=== PATIENT | male | born 1980 | race American Indian/Alaskan Native ===

== ENCOUNTER 2018-09-28 17:15 | Emergency (ER) | payer OTHER ==
--- NOTE | 2018-09-28 17:45 | Emergency Department Report ---
ED Seizure HPI - General Chief Complaint: Seizure Stated Complaint: SEIZURE Time Seen by Provider: 09/28/18 17:43 Source: EMS Mode of arrival: Stretcher Limitations: No Limitations - History of Present Illness MD Complaint: seizure -: Sudden Description of Episode: loss of consciousness, tonic-clonic movement Witnessed:: Yes Trauma: No Seizure History: known seizure disorder, history of non-compliance Place: home Possible Precipitating Event: none Associated Symptoms: denies other symptoms Treatments Prior to Arrival: none - Related Data Previous Rx's Medication Instructions Recorded Last Taken Type Divalproex Sodium [Depakote] 500 mg PO BID #60 tablet. 09/28/18 Unknown Rx Insulin Glargine,Hum.rec.anlog 40 units SQ QAM #1 vial 09/28/18 Unknown Rx [Lantus] Allergies Allergy/AdvReac Type Severity Reaction Status Date / Time No Known Allergies Allergy Verified 09/28/18 17:33 ED Review of Systems ROS: Stated complaint: SEIZURE Other details as noted in HPI Comment: All other systems reviewed and negative Constitutional: denies: chills, fever Eyes: denies: eye pain, eye discharge, vision change ENT: denies: ear pain, throat pain Respiratory: denies: cough, shortness of breath, wheezing Cardiovascular: denies: chest pain, palpitations Endocrine: no symptoms reported Gastrointestinal: denies: abdominal pain, nausea, diarrhea Genitourinary: denies: urgency, dysuria Musculoskeletal: denies: back pain, joint swelling, arthralgia Skin: denies: rash, lesions Neurological: headache. denies: weakness, paresthesias Psychiatric: denies: anxiety, depression Hematological/Lymphatic: denies: easy bleeding, easy bruising ED Past Medical Hx - Past Medical History Previous Medical History?: Yes Hx Hypertension: Yes Hx Diabetes: Yes Hx Seizures: Yes - Surgical History Past Surgical History?: Yes Additional Surgical History: eye surgery, - Social History Smoking Status: Never Smoker - Medications Home Medications: Home Medications Medication Instructions Recorded Confirmed Last Taken Type Divalproex Sodium [Depakote] 500 mg PO BID #60 tablet. 09/28/18 Unknown Rx Insulin Glargine,Hum.rec.anlog 40 units SQ QAM #1 vial 09/28/18 Unknown Rx [Lantus] ED Physical Exam - General Limitations: No Limitations General appearance: alert, in no apparent distress - Head Head exam: Present: atraumatic, normocephalic, normal inspection - Eye Eye exam: Present: normal appearance, PERRL, EOMI Pupils: Present: normal accommodation - ENT ENT exam: Present: normal exam, mucous membranes moist - Neck Neck exam: Present: normal inspection - Respiratory Respiratory exam: Present: normal lung sounds bilaterally. Absent: respiratory distress - Cardiovascular Cardiovascular Exam: Present: regular rate, normal rhythm. Absent: systolic murmur, diastolic murmur, rubs, gallop - GI/Abdominal GI/Abdominal exam: Present: soft, normal bowel sounds - Rectal Rectal exam: Present: deferred - Extremities Exam Extremities exam: Present: normal inspection - Back Exam Back exam: Present: normal inspection, full ROM - Neurological Exam Neurological exam: Present: alert, oriented X3, CN II-XII intact - Psychiatric Psychiatric exam: Present: normal affect, normal mood - Skin Skin exam: Present: warm, dry, intact, normal color. Absent: rash ED Course Vital Signs 09/28/18 09/28/18 09/28/18 17:28 18:01 18:27 Temperature 98.3 F Pulse Rate 86 Respiratory 16 18 Rate Blood Pressure 107/56 116/65 O2 Sat by Pulse 95 100 99 Oximetry 09/28/18 09/28/18 09/28/18 18:30 19:02 19:10 Temperature Pulse Rate Respiratory 18 Rate Blood Pressure 109/58 116/65 O2 Sat by Pulse 100 97 Oximetry 09/28/18 19:30 Temperature Pulse Rate Respiratory Rate Blood Pressure 116/65 O2 Sat by Pulse 99 Oximetry - Consultations Consultation #1: 09/28/18 19:47 I consulted the teleneurologist salesperson [employer] Dr Saul, she recommend loading patient with 1000mg of Depakote IV and discharging him on Depekote 500mg PO BID. Out patient follow up with a Neurologist. ED Medical Decision Making - Lab Data Result diagrams: 09/28/18 17:57 09/28/18 17:57 Lab Results 09/28/18 09/28/18 09/28/18 Range/Units 17:57 17:57 18:06 WBC 5.5 (4.5-11.0) K/mm3 RBC 4.57 (3.65-5.03) M/mm3 Hgb 12.7 (11.8-15.2) gm/dl Hct 38.1 (35.5-45.6) % MCV 83 L (84-94) fl MCH 28 (28-32) pg MCHC 34 (32-34) % RDW 12.5 L (13.2-15.2) % Plt Count 220 (140-440) K/mm3 Lymph % (Auto) 16.4 (13.4-35.0) % [place] % (Auto) 6.9 (0.0-7.3) % Eos % (Auto) 1.2 (0.0-4.3) % Baso % (Auto) 1.3 (0.0-1.8) % Lymph # 0.9 L (1.2-5.4) K/mm3 [place] # 0.4 (0.0-0.8) K/mm3 Eos # 0.1 (0.0-0.4) K/mm3 Baso # 0.1 (0.0-0.1) K/mm3 Seg Neutrophils % 74.2 H (40.0-70.0) % Seg Neutrophils # 4.1 (1.8-7.7) K/mm3 VBG pH (7.320-7.420) Sodium 136 L (137-145) mmol/L Potassium 4.2 (3.6-5.0) mmol/L Chloride 95.0 L (98-107) mmol/L Carbon Dioxide 19 L (22-30) mmol/L Anion Gap 26 mmol/L BUN 12 (9-20) mg/dL Creatinine 1.6 H (0.8-1.5) mg/dL Estimated GFR 48 ml/min BUN/Creatinine Ratio 8 % Glucose 351 H (75-100) mg/dL Calcium 9.3 (8.4-10.2) mg/dL Total Bilirubin 0.20 (0.1-1.2) mg/dL Direct Bilirubin < 0.2 (0-0.2) mg/dL Indirect Bilirubin 0.0 mg/dL AST 67 H (5-40) units/L ALT 48 (7-56) units/L Alkaline Phosphatase 65 (35-129) units/L Total Protein 7.2 (6.3-8.2) g/dL Albumin 4.2 (3.9-5) g/dL Albumin/Globulin Ratio 1.4 % Phenytoin (10.0-20.0) ug/mL Valproic Acid (50-100) ug/mL Plasma/Serum Alcohol (0-0.07) % 09/28/18 09/28/18 09/28/18 Range/Units 18:06 18:06 18:06 WBC (4.5-11.0) K/mm3 RBC (3.65-5.03) M/mm3 Hgb (11.8-15.2) gm/dl Hct (35.5-45.6) % MCV (84-94) fl MCH (28-32) pg MCHC (32-34) % RDW (13.2-15.2) % Plt Count (140-440) K/mm3 Lymph % (Auto) (13.4-35.0) % [place] % (Auto) (0.0-7.3) % Eos % (Auto) (0.0-4.3) % Baso % (Auto) (0.0-1.8) % Lymph # (1.2-5.4) K/mm3 [place] # (0.0-0.8) K/mm3 Eos # (0.0-0.4) K/mm3 Baso # (0.0-0.1) K/mm3 Seg Neutrophils % (40.0-70.0) % Seg Neutrophils # (1.8-7.7) K/mm3 VBG pH 7.325 (7.320-7.420) Sodium (137-145) mmol/L Potassium (3.6-5.0) mmol/L Chloride (98-107) mmol/L Carbon Dioxide (22-30) mmol/L Anion Gap mmol/L BUN (9-20) mg/dL Creatinine (0.8-1.5) mg/dL Estimated GFR ml/min BUN/Creatinine Ratio % Glucose (75-100) mg/dL Calcium (8.4-10.2) mg/dL Total Bilirubin (0.1-1.2) mg/dL Direct Bilirubin (0-0.2) mg/dL Indirect Bilirubin mg/dL AST (5-40) units/L ALT (7-56) units/L Alkaline Phosphatase (35-129) units/L Total Protein (6.3-8.2) g/dL Albumin (3.9-5) g/dL Albumin/Globulin Ratio % Phenytoin 0.8 L (10.0-20.0) ug/mL Valproic Acid 30.8 L (50-100) ug/mL Plasma/Serum Alcohol < 0.01 (0-0.07) % - Radiology Data Radiology results: report reviewed, image reviewed CT head without contrast and CXR showed no acute findings. - Medical Decision Making Seizure Disorder. Dehydration. Critical care attestation.: If time is entered above; I have spent that time in minutes in the direct care of this critically ill patient, excluding procedure time. ED Disposition Clinical Impression: Seizure disorder, Dehydration, moderate, ANOOP (acute kidney injury), Hyperglyc emia Diabetes mellitus Qualifiers: Diabetes mellitus type: type 2 Diabetes mellitus prison insulin use: unspecified prison insulin use status Diabetes mellitus complication status: with unspecified complications Qualified Code(s): E11.8 - Type 2 diabetes mellitus with unspecified complications Disposition: TO HOME OR SELFCARE Is pt being admited?: No Does the pt Need Aspirin: No Condition: Stable Instructions: Dehydration (ED), Diabetes Mellitus Type 2 in Adults (ED), Epilepsy (ED) Additional Instructions: Please follow up with the Neurologist Dr Saul and also with Dr Lund (Internal Medicine) on Sunday. Drink plenty of water. Return to the ED if your condition worsens. Prescriptions: Divalproex Sodium [Depakote] 500 mg PO BID #60 tablet. Insulin Glargine,Hum.rec.anlog [Lantus] 40 units SQ QAM #1 vial Referrals: KENDRICK SAUL MD [Staff] - 3-5 Days RAMAN LUND MD [Staff Physician] - 3-5 Days Time of Disposition: 20:09
[2018-09-28] MEDS ORDERED: NACL 0.9% 1000 ML 1,000 ML IV ONE ×3 (18:00→20:00)
[2018-09-28 18:31] LABS: Basophils # (Auto) 0.1 K/mm3 (0.0-0.1); Basophils % (Auto) 1.3 % (0.0-1.8); Eosinophils # (Auto) 0.1 K/mm3 (0.0-0.4); Eosinophils % (Auto) 1.2 % (0.0-4.3); Hematocrit 38.1 % (35.5-45.6); Hemoglobin 12.7 gm/dl (11.8-15.2); Lymphocytes # (Auto) 0.9 K/mm3 (1.2-5.4); Lymphocytes % (Auto) 16.4 % (13.4-35.0); Mean Corpuscular HGB Conc 34 % (32-34); Mean Corpuscular Volume 83 fl (84-94); Monocytes # (Auto) 0.4 K/mm3 (0.0-0.8); Monocytes % (Auto) 6.9 % (0.0-7.3); Platelet Count 220 K/mm3 (140-440); Red Blood Count 4.57 M/mm3 (3.65-5.03); Red Cell Distribution Width 12.5 % (13.2-15.2)
[2018-09-28] MEDS ORDERED: REGLAN IV ONE (18:37)
[2018-09-28] MEDS ORDERED: MORPHINE IV ONE (18:37)
[2018-09-28] MEDS ORDERED: MORPHINE ONE (18:45)
[2018-09-28 18:50] LABS: Calcium 9.3 mg/dL (8.4-10.2)
[2018-09-28 18:54] LABS: Alanine Aminotransferase 48 units/L (7-56); Albumin 4.2 g/dL (3.9-5)
--- NOTE | 2018-09-28 18:57 | XRay Report ---
FINAL REPORT EXAM: XR CHEST 1V AP HISTORY: cough TECHNIQUE: upright single view chest PRIORS: None. FINDINGS: Cardiac and mediastinal contours are unremarkable. No focal pulmonary infiltrate is identified. No pleural fluid collection seen. Pulmonary vasculature is unremarkable. IMPRESSION: Negative single-view chest
[2018-09-28 19:04] LABS: Bilirubin,Direct < 0.2 mg/dL (0-0.2)
--- NOTE | 2018-09-28 19:11 | Cat Scan Report ---
FINAL REPORT EXAM: CT HEAD/BRAIN WO CON HISTORY: Seizure TECHNIQUE: CT head without contrast PRIORS: None. FINDINGS: No acute intra-axial or extra-axial hemorrhage is identified. There is no evidence of midline shift or mass effect. The ventricles and sulci are within normal limits. [place]u-white matter differentiation is intact. No acute parenchymal abnormalities seen. Bony calvarium is grossly intact. Visualized portions of the mastoids and paranasal sinuses are unre markable. IMPRESSION: Negative CT head
[2018-09-28] MEDS ORDERED: DepaCON 1,000 MG in NACL 0.9% 100 ML IV ONE (19:34)
[2018-09-28 19:46] VITALS: BP 116/65
[2018-09-28 19:50] LABS: Bilirubin,Urine NEG (Negative); Blood,Urine MOD (Negative); Color,Urine Straw (Yellow); Mucus,Urine FEW /HPF; Protein,Urine <15 mg/dL mg/dL (Negative); Urobilinogen,Urine < 2.0 mg/dL (<2.0); WBC,Urine < 1.0 /HPF (0.0-6.0)
[2018-09-28 20:14] LABS: Amphetamine Screen,Urine PRESUMPTIVE NEGATIVE; Benzodiazepines Screen,Urine PRESUMPTIVE NEGATIVE; Cocaine Screen,Urine PRESUMPTIVE NEGATIVE; Methadone Screen,Urine PRESUMPTIVE NEGATIVE; Opiate Screen,Urine PRESUMPTIVE NEGATIVE
[2018-09-28 20:35] LABS: Cannabinoid Screen,Urine PRESUMPTIVE POSITIVE
== END 2018-09-28 22:12 | disposition home or self-care (01) ==
LOC: ED 17:15
DX: G40.909 Epilepsy, unspecified, not intractable, without status epilepticus (principal); E86.0 Dehydration; E11.65 Type 2 diabetes mellitus with hyperglycemia; N17.9 Acute kidney failure, unspecified; I10 Essential (primary) hypertension
CPT/HCPCS: 36415; 70450; 71045; 80048; 80076; 80164; 80185; 80307; 81001; 82805; 82962; 85025; 96365; 96375; 99285; G0480; J2270; J2765; J7030; 80320; 96361

== ENCOUNTER 2021-02-05 11:00 | Observation (INO) | payer SELFPAY ==
[2021-02-05] MEDS ORDERED: IPRATROPIUM/ALBUTEROL SULFATE 3 ML AMPUL.NEB IH ONE (11:15)
[2021-02-05] MEDS ORDERED: SODIUM CHLORIDE 0.9% 1000 ML 1,000 ML IV ONE ×3 (11:36→13:08)
[2021-02-05] MEDS ORDERED: BUTALB/ACETAMINOPHEN/CAFFEINE TAB PO ONE (11:39)
[2021-02-05 12:06] LABS: Bilirubin,Urine NEG (Negative); Blood,Urine NEG (Negative); Color,Urine Straw (Yellow); Protein,Urine <15 mg/dL mg/dL (Negative); Urobilinogen,Urine < 2.0 mg/dL (<2.0)
[2021-02-05 12:15] LABS: Basophils % (Auto) 0.6 % (0.0-1.8); Eosinophils # (Auto) 0.2 K/mm3 (0.0-0.4); Eosinophils % (Auto) 2.9 % (0.0-4.3); Hematocrit 38.6 % (35.5-45.6); Hemoglobin 12.9 gm/dl (11.8-15.2); Lymphocytes # (Auto) 2.4 K/mm3 (1.2-5.4); Lymphocytes % (Auto) 38.2 % (13.4-35.0); Mean Corpuscular HGB Conc 33 % (32-34); Mean Corpuscular Volume 83 fl (84-94); Monocytes # (Auto) 0.4 K/mm3 (0.0-0.8); Monocytes % (Auto) 6.1 % (0.0-7.3); Platelet Count 265 K/mm3 (140-440); Red Blood Count 4.64 M/mm3 (3.65-5.03); Red Cell Distribution Width 12.6 % (13.2-15.2)
[2021-02-05 12:41] LABS: Creatine Kinase MB 21.2 ng/mL (0.0-4.0)
[2021-02-05 12:42] LABS: BUN/Creatinine Ratio 11; Blood Urea Nitrogen 17 mg/dL (9-20); Calcium 8.8 mg/dL (8.4-10.2); Hemolysis Index 3
[2021-02-05 12:53] LABS: Chol/HDL Ratio 2.23 %; HDL Cholesterol 72 mg/dL (40-59); LDL Cholesterol,Direct 80 mg/dL (50-130)
[2021-02-05] MEDS ORDERED: ASPIRIN 325 MG TAB PO ONE (13:05)
[2021-02-05] MEDS ORDERED: INSULIN REGULAR, HUMAN 100 UNITS/1 ML IV ONE (13:42)
[2021-02-05] MEDS ORDERED: VALPROATE SODIUM 500 MG in SODIUM CHLORIDE 0.9% 100 ML IV ONE (14:05)
[2021-02-05] MEDS ORDERED: ACETAMINOPHEN 325 MG TAB PO PRN (17:40)
[2021-02-05] MEDS ORDERED: ONDANSETRON 4 MG/2 ML INJ IV PRN (17:40)
[2021-02-05] MEDS ORDERED: HYDROmorphone 1 MG/1 ML INJ IV PRN (17:40)
[2021-02-05] MEDS ORDERED: MORPHINE 2 MG/1 ML INJ IV PRN (17:40)
[2021-02-05] MEDS: INSULIN LISPRO 100 UNIT/ML SUB-Q SCH ×2 (18:17→22:09)
[2021-02-05] MEDS: oxyCODONE /ACETAMINOPHEN 5-325MG TAB PO PRN (18:17)
[2021-02-05] MEDS: FAMOTIDINE 20 MG/2 ML INJ IV SCH (22:08)
[2021-02-05] MEDS: INSULIN GLARGINE 100 UNITS/ML SUB-Q SCH (22:08)
[2021-02-05] MEDS: DIVALPROEX DR 500 MG TAB PO SCH (22:26)
[2021-02-06] MEDS: INSULIN LISPRO 100 UNIT/ML SUB-Q SCH ×6 (01:59→22:14)
[2021-02-06] MEDS: SODIUM CHLORIDE 0.9% 1000 ML 1,000 ML IV SCH ×3 (02:05→17:02)
[2021-02-06] MEDS ORDERED: DEXTROSE 50% IN WATER (25GM) 50 ML SYRINGE IV ONE (04:33)
[2021-02-06] MEDS ORDERED: DEXTROSE 50% IN WATER (25GM) 50 ML SYRINGE IV PRN (04:34)
[2021-02-06 06:18] LABS: Basophils % (Auto) 0.3 % (0.0-1.8); Eosinophils # (Auto) 0.3 K/mm3 (0.0-0.4); Eosinophils % (Auto) 5.3 % (0.0-4.3); Hematocrit 34.8 % (35.5-45.6); Hemoglobin 11.7 gm/dl (11.8-15.2); Lymphocytes % (Auto) 49.7 % (13.4-35.0); Mean Corpuscular HGB Conc 34 % (32-34); Mean Corpuscular Volume 83 fl (84-94); Monocytes # (Auto) 0.3 K/mm3 (0.0-0.8); Monocytes % (Auto) 5.2 % (0.0-7.3); Platelet Count 255 K/mm3 (140-440); Red Blood Count 4.18 M/mm3 (3.65-5.03); Red Cell Distribution Width 12.9 % (13.2-15.2)
[2021-02-06 06:41] LABS: Alanine Aminotransferase 71 units/L (7-56); Albumin 3.7 g/dL (3.9-5); BUN/Creatinine Ratio 10; Blood Urea Nitrogen 13 mg/dL (9-20); Calcium 8.8 mg/dL (8.4-10.2); Hemolysis Index 6
[2021-02-06] MEDS: FAMOTIDINE 20 MG/2 ML INJ IV SCH (09:19)
[2021-02-06] MEDS: DIVALPROEX DR 500 MG TAB PO SCH ×2 (09:19→21:31)
[2021-02-06] MEDS: HEPARIN 5,000 UNIT/1 ML VIAL SUB-Q SCH ×2 (09:20→21:32)
[2021-02-06] MEDS: oxyCODONE /ACETAMINOPHEN 5-325MG TAB PO PRN (09:54)
[2021-02-06] MEDS ORDERED: GABAPENTIN 300 MG CAP PO ONE (17:00)
[2021-02-06] MEDS: FAMOTIDINE 20 MG TAB PO SCH (21:31)
[2021-02-06] MEDS: INSULIN GLARGINE 100 UNITS/ML SUB-Q SCH (22:14)
[2021-02-07] MEDS: INSULIN LISPRO 100 UNIT/ML SUB-Q SCH ×3 (01:38→09:44)
[2021-02-07] MEDS: SODIUM CHLORIDE 0.9% 1000 ML 1,000 ML IV SCH (05:10)
[2021-02-07 06:09] LABS: Hematocrit 33.5 % (35.5-45.6); Hemoglobin 11.4 gm/dl (11.8-15.2); Mean Corpuscular HGB Conc 34 % (32-34); Mean Corpuscular Volume 82 fl (84-94); Platelet Count 232 K/mm3 (140-440); Red Blood Count 4.08 M/mm3 (3.65-5.03); Red Cell Distribution Width 12.7 % (13.2-15.2)
[2021-02-07 06:25] LABS: Alanine Aminotransferase 58 units/L (7-56); Albumin 3.4 g/dL (3.9-5); BUN/Creatinine Ratio 10; Blood Urea Nitrogen 13 mg/dL (9-20); Calcium 8.2 mg/dL (8.4-10.2); Hemolysis Index 22
[2021-02-07 06:56] LABS: Total Cells Counted 100
[2021-02-07 06:57] LABS: Anisocytosis 1+; Platelet Estimate Consistent w Auto
[2021-02-07 08:20] VITALS: BP 134/74
[2021-02-07] MEDS: HEPARIN 5,000 UNIT/1 ML VIAL SUB-Q SCH (09:44)
[2021-02-07] MEDS: DIVALPROEX DR 500 MG TAB PO SCH (09:44)
[2021-02-07] MEDS: FAMOTIDINE 20 MG TAB PO SCH (09:44)
[2021-02-07] MEDS ORDERED: GABAPENTIN 300 MG CAP PO SCH (22:00)
== END 2021-02-07 11:52 | disposition home or self-care (01) ==
LOC: ED 11:00 → 4A 15:49
PROVIDERS: ADMIT Internal Medicine; ATTEND Internal Medicine
DX: N17.9 Acute kidney failure, unspecified (principal); M62.82 Rhabdomyolysis; E87.5 Hyperkalemia; E87.1 Hypo-osmolality and hyponatremia; I10 Essential (primary) hypertension; E11.00 Type 2 diabetes mellitus with hyperosmolarity without nonketotic hyperglycemic-hyperosmolar coma (NKHHC); R56.9 Unspecified convulsions; F17.210 Nicotine dependence, cigarettes, uncomplicated; E11.65 Type 2 diabetes mellitus with hyperglycemia; R77.8 Other specified abnormalities of plasma proteins; Z79.899 Other long term (current) drug therapy; Z98.890 Other specified postprocedural states; Z79.4 Long term (current) use of insulin
CPT/HCPCS: 36415; 70450; 80048; 80053; 80061; 80164; 81001; 82550; 82553; 82805; 82947; 82962; 83036; 84484; 85025; 93005; 96361; 96365; 96366; 96372; 96375; 96376; 99285; G0378; J1644; J7030; 85007; J1815

== ENCOUNTER 2021-04-14 14:55 | Emergency (ER) | payer OTHER ==
[2021-04-14 20:26] LABS: Basophils % (Auto) 0.4 % (0.0-1.8); Eosinophils # (Auto) 0.1 K/mm3 (0.0-0.4); Eosinophils % (Auto) 2.2 % (0.0-4.3); Hematocrit 35.7 % (35.5-45.6); Hemoglobin 11.7 gm/dl (11.8-15.2); Lymphocytes # (Auto) 1.4 K/mm3 (1.2-5.4); Lymphocytes % (Auto) 25.9 % (13.4-35.0); Mean Corpuscular HGB Conc 33 % (32-34); Mean Corpuscular Volume 85 fl (84-94); Monocytes # (Auto) 0.4 K/mm3 (0.0-0.8); Monocytes % (Auto) 7.8 % (0.0-7.3); Platelet Count 181 K/mm3 (140-440); Red Blood Count 4.21 M/mm3 (3.65-5.03); Red Cell Distribution Width 13.1 % (13.2-15.2)
[2021-04-14 20:51] LABS: Alanine Aminotransferase 40 units/L (7-56); Albumin 3.7 g/dL (3.9-5); BUN/Creatinine Ratio 13; Blood Urea Nitrogen 20 mg/dL (9-20); Calcium 9.5 mg/dL (8.4-10.2); Hemolysis Index 7
[2021-04-14] MEDS ORDERED: SODIUM CHLORIDE 0.9% 1000 ML 1,000 ML IV ONE ×3 (21:30→23:38)
--- NOTE | 2021-04-14 22:38 | Event Note ---
ED Screening Note Date of service: 04/14/21 Time: 20:30 ED Screening Note: Patient is a 40-year-old -[place] male with a history of heavy tobacco abuse, [id number] diabetes with chronic diabetic neuropathy who presents to the ED with complaint of acute exacerbation of his chronic bilateral lower extremity neuropathic pain persistent for the last 2 weeks. Patient states that he also suspects that his blood sugar may be high since he has not been on his medications for over 2 weeks. Patient states that he has recently relocated to [place] and is yet to get any primary care physician to follow-up with. Patient however states that he was initially evaluated at another hospital emergency department about a week ago and given prescriptions for his medications including insulin and pain medications but states that he only obtained pain medications but never purchased insulin or any of his diabetic medications since he did not have enough money. Patient denies dizziness, syncope, hematuria, dysuria, chest pain or shortness of breath, abdominal pain, numbness and tingling or weakness of lower extremities bilaterally, testicular pain, fever, chills, nausea, vomiting, diarrhea or headache. This initial assessment/diagnostic orders/clinical plan/treatment(s) is/are subject to change based on patients health status, clinical progression and re- assessment by fellow clinical providers in the ED. Further treatment and workup at subsequent clinical providers discretion. Patient/guardian urged not to elope from the ED as their condition may be serious if not clinically assessed and managed. Initial orders include: CBC, CMP,
[2021-04-14] MEDS ORDERED: traMADol 50 MG TAB PO ONE (23:38)
[2021-04-14] MEDS ORDERED: INSULIN REGULAR, HUMAN 100 UNITS/1 ML IV ONE (23:38)
--- NOTE | 2021-04-15 00:14 | Emergency Department Report ---
ED General Adult HPI - General Chief complaint: Extremity Injury, Lower Stated complaint: FOOT PAINS Time Seen by Provider: 04/14/21 16:00 Source: patient Mode of arrival: Ambulatory Limitations: No Limitations - History of Present Illness Initial comments: Patient presents to the emergency department the chief complaint of bilateral foot and leg pain. Patient states he has a history of diabetes and suffers from diabetic neuropathy. Patient states he takes 300 mg of gabapentin daily to no avail. Patient states at one point he was given Ultram for the pain which did help. Patient also complains of his glucose level being greater than 900. Sharda ent denies chest pain, shortness breath, or abdominal pain. -: unknown Severity scale (0 -10): 6 Quality: burning Consistency: constant Improves with: none Worsens with: none Associated Symptoms: denies other symptoms Treatments Prior to Arrival: none - Related Data Previous Rx's Medication Instructions Recorded Last Taken Type Insulin Lispro [Humalog] 0 unit SUB-Q QACHS #1 vial 05/24/20 Unknown Rx Insulin NPH, Human [NovoLIN N] 25 unit SUB-Q BID #1 vial 05/24/[address] [Mar Nicholson] 500 mg PO BID #60 tablet 02/07/21 Unknown Rx Gabapentin 300 mg PO QHS #30 capsule 02/07/21 Unknown Rx Insulin Aspart (Nf) [Novolog 8 unit SQ AC #1 insuln.pen 02/07/21 Unknown Rx Flexpen] traMADoL [Ultram] 50 mg PO Q6HR PRN #24 tablet 04/15/21 Unknown Rx Allergies Allergy/AdvReac Type Severity Reaction Status Date / Time No Known Allergies Allergy Verified 04/14/21 15:48 ED Review of Systems ROS: Stated complaint: FOOT PAINS Other details as noted in HPI Constitutional: denies: chills, fever Eyes: denies: eye pain, eye discharge, vision change ENT: denies: ear pain, throat pain Respiratory: denies: cough, shortness of breath, wheezing Cardiovascular: denies: chest pain, palpitations Endocrine: no symptoms reported Gastrointestinal: denies: abdominal pain, nausea, diarrhea Genitourinary: denies: urgency, dysuria Musculoskeletal: other (leg pain). denies: back pain, joint swelling, arthralgia Skin: denies: rash, lesions Neurological: denies: headache, weakness, paresthesias Psychiatric: denies: anxiety, depression Hematological/Lymphatic: denies: easy bleeding, easy bruising ED Past Medical Hx - Past Medical History Hx Hypertension: Yes ("taken off meds by MD, no longer have it") Hx Diabetes: Yes Hx Seizures: Yes - Surgical History Additional Surgical History: eye surgery, childhood, ankle surgery - Social History Smoking Status: Current Every Day Smoker - Medications Home Medications: Home Medications Medication Instructions Recorded Confirmed Last Taken Type Insulin Lispro [Humalog] 0 unit SUB-Q QACHS #1 vial 05/24/20 02/05/21 Unknown Rx Insulin NPH, Human [NovoLIN N] 25 unit SUB-Q BID #1 vial 05/24/20 02/05/[address] [Depakote Dr] 500 mg PO BID #60 tablet 02/07/21 Unknown Rx Gabapentin 300 mg PO QHS #30 capsule 02/07/21 Unknown Rx Insulin Aspart (Nf) [Novolog 8 unit SQ AC #1 insuln.pen 02/07/21 Unknown Rx Flexpen] traMADoL [Ultram] 50 mg PO Q6HR PRN #24 tablet 04/15/21 Unknown Rx ED Physical Exam - General Limitations: No Limitations General appearance: alert, in no apparent distress - Head Head exam: Present: atraumatic, normocephalic - Eye Eye exam: Present: normal appearance, PERRL, EOMI - ENT ENT exam: Present: mucous membranes moist - Neck Neck exam: Present: normal inspection - Respiratory Respiratory exam: Present: normal lung sounds bilaterally. Absent: respiratory distress - Cardiovascular Cardiovascular Exam: Present: regular rate, normal rhythm. Absent: systolic murmur, diastolic murmur, rubs, gallop - GI/Abdominal GI/Abdominal exam: Present: soft, normal bowel sounds. Absent: distended, tenderness - Rectal Rectal exam: Present: deferred - Extremities Exam Extremities exam: Present: normal inspection, other (Onychomycosis) - Back Exam Back exam: Present: normal inspection - Neurological Exam Neurological exam: Present: alert, oriented X3 - Psychiatric Psychiatric exam: Present: normal affect, normal mood - Skin Skin exam: Present: warm, dry, intact, normal color. Absent: rash ED Course Vital Signs 04/14/21 15:50 Temperature 99.1 F Pulse Rate 94 H Respiratory 20 Rate Blood Pressure 148/105 O2 Sat by Pulse 99 Oximetry ED Medical Decision Making - Lab Data Result diagrams: 04/14/21 20:00 04/14/21 20:00 Lab Results 04/14/21 04/14/21 04/14/21 Range/Units 20:00 20:00 22:49 WBC 5.4 (4.5-11.0) K/mm3 RBC 4.21 (3.65-5.03) M/mm3 Hgb 11.7 L (11.8-15.2) gm/dl Hct 35.7 (35.5-45.6) % MCV 85 (84-94) fl MCH 28 (28-32) pg MCHC 33 (32-34) % RDW 13.1 L (13.2-15.2) % Plt Count 181 (140-440) K/mm3 Lymph % (Auto) 25.9 (13.4-35.0) % [place] % (Auto) 7.8 H (0.0-7.3) % Eos % (Auto) 2.2 (0.0-4.3) % Baso % (Auto) 0.4 (0.0-1.8) % Lymph # (Auto) 1.4 (1.2-5.4) K/mm3 [place] # (Auto) 0.4 (0.0-0.8) K/mm3 Eos # (Auto) 0.1 (0.0-0.4) K/mm3 Baso # (Auto) 0.0 (0.0-0.1) K/mm3 Seg Neutrophils % 63.7 (40.0-70.0) % Seg Neutrophils # 3.5 (1.8-7.7) K/mm3 VBG pH (7.320-7.420) Sodium 127 L (137-145) mmol/L Potassium 5.5 H (3.6-5.0) mmol/L Chloride 87.6 L (98-107) mmol/L Carbon Dioxide 27 (22-30) mmol/L Anion Gap 18 mmol/L BUN 20 (9-20) mg/dL Creatinine 1.5 H (0.8-1.3) mg/dL Estimated GFR > 60 ml/min BUN/Creatinine Ratio 13 % Glucose 996 H* (75-100) mg/dL Calcium 9.5 (8.4-10.2) mg/dL Magnesium 1.60 L (1.7-2.3) mg/dL Total Bilirubin 0.20 (0.1-1.2) mg/dL AST 56 H (5-40) units/L ALT 40 (7-56) units/L Alkaline Phosphatase 81 (35-129) units/L Total Protein 6.5 (6.3-8.2) g/dL Albumin 3.7 L (3.9-5) g/dL Albumin/Globulin Ratio 1.3 % 04/14/21 Range/Units 22:49 WBC (4.5-11.0) K/mm3 RBC (3.65-5.03) M/mm3 Hgb (11.8-15.2) gm/dl Hct (35.5-45.6) % MCV (84-94) fl MCH (28-32) pg MCHC (32-34) % RDW (13.2-15.2) % Plt Count (140-440) K/mm3 Lymph % (Auto) (13.4-35.0) % [place] % (Auto) (0.0-7.3) % Eos % (Auto) (0.0-4.3) % Baso % (Auto) (0.0-1.8) % Lymph # (Auto) (1.2-5.4) K/mm3 [place] # (Auto) (0.0-0.8) K/mm3 Eos # (Auto) (0.0-0.4) K/mm3 Baso # (Auto) (0.0-0.1) K/mm3 Seg Neutrophils % (40.0-70.0) % Seg Neutrophils # (1.8-7.7) K/mm3 VBG pH 7.349 (7.320-7.420) Sodium (137-145) mmol/L Potassium (3.6-5.0) mmol/L Chloride (98-107) mmol/L Carbon Dioxide (22-30) mmol/L Anion Gap mmol/L BUN (9-20) mg/dL Creatinine (0.8-1.3) mg/dL Estimated GFR ml/min BUN/Creatinine Ratio % Glucose (75-100) mg/dL Calcium (8.4-10.2) mg/dL Magnesium (1.7-2.3) mg/dL Total Bilirubin (0.1-1.2) mg/dL AST (5-40) units/L ALT (7-56) units/L Alkaline Phosphatase (35-129) units/L Total Protein (6.3-8.2) g/dL Albumin (3.9-5) g/dL Albumin/Globulin Ratio % - Radiology Data Radiology results: report reviewed - Medical Decision Making Patient given IV insulin and 2 L IV fluid Critical Care Time: Yes Critical care time in (mins) excluding proc time.: 35 Critical care attestation.: If time is entered above; I have spent that time in minutes in the direct care of this critically ill patient, excluding procedure time. ED Disposition Clinical Impression: Hyperglycemia, Diabetic neuropathy Disposition: 01 HOME / SELF CARE / HOMELESS Is pt being admited?: No Does the pt Need Aspirin: No Condition: Stable Instructions: Diabetes Mellitus Type 2 in Adults (ED), Diabetic Neuropathy, Diabetes Mellitus and Exercise, Hyperglycemia, [id number], Hyperglycemia Additional Instructions: return if worse Referrals: FITO HERNANDEZFRANKLIN MD [place] [Primary Care Provider] - 3-5 Days IRMA TREJO MD [Staff Physician] - 3-5 Days [facility] [Provider Group] - 3-5 Days [facility] [place] [Outside] - 3-5 Days [facility] [Provider Group] - 3-5 Days [facility] [Provider Group] - 3-5 Days Time of Disposition: 01:35
[2021-04-15] MEDS ORDERED: INSULIN REGULAR, HUMAN 100 UNITS/1 ML IV ONE (03:54)
[2021-04-15 06:15] VITALS: BP 142/76
== END 2021-04-15 06:15 | disposition home or self-care (01) ==
LOC: ED 14:55
DX: E11.65 Type 2 diabetes mellitus with hyperglycemia (principal); E11.40 Type 2 diabetes mellitus with diabetic neuropathy, unspecified; I10 Essential (primary) hypertension; R56.9 Unspecified convulsions; F17.200 Nicotine dependence, unspecified, uncomplicated; Z98.890 Other specified postprocedural states
CPT/HCPCS: 36415; 80053; 82805; 82962; 83735; 85025; 96361; 96374; 96376; 99283; J7030; J1815

== ENCOUNTER 2021-07-25 12:54 | Emergency (ER) | payer OTHER ==
[2021-07-25] MEDS ORDERED: SODIUM CHLORIDE 0.9% 1000 ML 1,000 ML IV ONE ×2 (14:40→15:31)
--- NOTE | 2021-07-25 14:59 | Emergency Department Report ---
ED General Adult HPI - General Chief complaint: Hyperglycemia Stated complaint: HYPERGLYCEMIA Time Seen by Provider: 07/25/21 14:35 Source: patient Mode of arrival: Stretcher Limitations: No Limitations - History of Present Illness Initial comments: Patient is a 40-year-old male presents emergency room with complaints of hyperglycemia. He states he has not taken his short acting insulin in 2 weeks. He reports that he got a new primary care doctor and they gave him a vial of insulin instead of a insulin pen which he previously had. He states that the insulin vial did not come with any syringes so he reports that he was not able to give himself any insulin. He has associated nausea, vomiting, dry mouth, increased thirst, urinary frequency, lightheadedness. Past medical history of seizures. No allergies to medications. - Related Data Previous Rx's Medication Instructions Recorded Last Taken Type Insulin Lispro [Humalog] 0 unit SUB-Q QACHS #1 vial 05/24/20 Unknown Rx Insulin NPH, Human [NovoLIN N] 25 unit SUB-Q BID #1 vial 05/24/20 Unknown Rx Divalproex [Mar Nicholson] 500 mg PO BID #60 tablet 02/07/21 Unknown Rx Gabapentin 300 mg PO QHS #30 capsule 02/07/21 Unknown Rx traMADoL [Ultram] 50 mg PO Q6HR PRN #24 tablet 04/15/21 Unknown Rx Blood Sugar Diagnostic [Blood 1 each MC QID #2 box 07/25/21 Unknown Rx Glucose Test] Insulin Aspart (Nf) [NovoLOG 8 unit SQ AC #1 insuln.pen 07/25/21 Unknown Rx Flexpen] Allergies Allergy/AdvReac Type Severity Reaction Status Date / Time No Known Allergies Allergy Verified 04/14/21 15:48 ED Review of Systems ROS: Stated complaint: HYPERGLYCEMIA Other details as noted in HPI Comment: All other systems reviewed and negative ED Past Medical Hx - Past Medical History Previous Medical History?: Yes Hx Hypertension: Yes ("taken off meds by MD, no longer have it") Hx Diabetes: Yes Hx Seizures: Yes - Surgical History Past Surgical History?: Yes Additional Surgical History: eye surgery, childhood, ankle surgery - Social History Smoking Status: Current Every Day Smoker - Medications Home Medications: Home Medications Medication Instructions Recorded Confirmed Last Taken Type Insulin Lispro [Humalog] 0 unit SUB-Q QACHS #1 vial 05/24/20 02/05/21 Unknown Rx Insulin NPH, Human [NovoLIN N] 25 unit SUB-Q BID #1 vial 05/24/20 02/05/21 Unknown Rx Divalproex [Mar Nicholson] 500 mg PO BID #60 tablet 02/07/21 Unknown Rx Gabapentin 300 mg PO QHS #30 capsule 02/07/21 Unknown Rx traMADoL [Ultram] 50 mg PO Q6HR PRN #24 tablet 04/15/21 Unknown Rx Blood Sugar Diagnostic [Blood 1 each MC QID #2 box 07/25/21 Unknown Rx Glucose Test] Insulin Aspart (Nf) [NovoLOG 8 unit SQ AC #1 insuln.pen 07/25/21 Unknown Rx Flexpen] ED Physical Exam - General Limitations: No Limitations General appearance: alert, in no apparent distress - Head Head exam: Present: atraumatic, normocephalic - Eye Eye exam: Present: normal appearance - ENT ENT exam: Present: mucous membranes dry (mildly) - Respiratory Respiratory exam: Present: normal lung sounds bilaterally. Absent: respiratory distress, wheezes, rales, rhonchi, stridor, chest wall tenderness, accessory muscle use, decreased breath sounds, prolonged expiratory - Cardiovascular Cardiovascular Exam: Present: regular rate, normal rhythm, normal heart sounds. Absent: systolic murmur, diastolic murmur, rubs, gallop - Neurological Exam Neurological exam: Present: alert, oriented X3 - Psychiatric Psychiatric exam: Present: normal affect, normal mood - Skin Skin exam: Present: warm, dry, intact ED Course Vital Signs 07/25/21 07/25/21 13:00 20:48 Temperature 98.2 F 98.3 F Pulse Rate 76 71 Respiratory 16 17 Rate Blood Pressure 117/90 122/76 [Right] O2 Sat by Pulse 98 98 Oximetry ED Medical Decision Making - Lab Data Result diagrams: 07/25/21 14:43 07/25/21 14:43 Lab Results 07/25/21 07/25/21 07/25/21 Range/Units 14:39 14:43 14:43 WBC 5.7 (4.5-11.0) K/mm3 RBC 4.58 (3.65-5.03) M/mm3 Hgb 12.9 (11.8-15.2) gm/dl Hct 38.9 (35.5-45.6) % MCV 85 (84-94) fl MCH 28 (28-32) pg MCHC 33 (32-34) % RDW 12.6 L (13.2-15.2) % Plt Count 286 (140-440) K/mm3 Lymph % (Auto) 39.0 H (13.4-35.0) % [place] % (Auto) 7.1 (0.0-7.3) % Eos % (Auto) 1.5 (0.0-4.3) % Baso % (Auto) 0.5 (0.0-1.8) % Lymph # (Auto) 2.2 (1.2-5.4) K/mm3 [place] # (Auto) 0.4 (0.0-0.8) K/mm3 Eos # (Auto) 0.1 (0.0-0.4) K/mm3 Baso # (Auto) 0.0 (0.0-0.1) K/mm3 Seg Neutrophils % 51.9 (40.0-70.0) % Seg Neutrophils # 3.0 (1.8-7.7) K/mm3 VBG pH (7.320-7.420) Sodium 131 L (137-145) mmol/L Potassium 5.6 H (3.6-5.0) mmol/L Chloride 92.3 L (98-107) mmol/L Carbon Dioxide 26 (22-30) mmol/L Anion Gap 18 mmol/L BUN 25 H (9-20) mg/dL Creatinine 1.5 H (0.8-1.3) mg/dL Estimated GFR > 60 ml/min BUN/Creatinine Ratio 17 % Glucose 667 H* (75-100) mg/dL POC Glucose > 600 H (70-105) mg/dL Calcium 9.1 (8.4-10.2) mg/dL Total Bilirubin 0.30 (0.1-1.2) mg/dL AST 63 H (5-40) units/L ALT 102 H (7-56) units/L Alkaline Phosphatase 85 (35-129) units/L Total Protein 7.7 (6.3-8.2) g/dL Albumin 4.3 (3.9-5) g/dL Albumin/Globulin Ratio 1.3 % Urine Color (Yellow) Urine Turbidity (Clear) Urine pH (5.0-7.0) Ur Specific Superior (1.003-1.030) Urine Protein (Negative) mg/dL Urine Glucose (UA) (Negative) mg/dL Urine Ketones (Negative) mg/dL Urine Blood (Negative) Urine Nitrite (Negative) Urine Bilirubin (Negative) Urine Urobilinogen (<2.0) mg/dL Ur Leukocyte Esterase (Negative) Urine WBC (Auto) (0.0-6.0) /HPF Urine RBC (Auto) (0.0-6.0) /HPF U Epithel Cells (Auto) (0-13.0) /HPF 07/25/21 07/25/21 07/25/21 Range/Units 14:43 16:30 16:59 WBC (4.5-11.0) K/mm3 RBC (3.65-5.03) M/mm3 Hgb (11.8-15.2) gm/dl Hct (35.5-45.6) % MCV (84-94) fl MCH (28-32) pg MCHC (32-34) % RDW (13.2-15.2) % Plt Count (140-440) K/mm3 Lymph % (Auto) (13.4-35.0) % [place] % (Auto) (0.0-7.3) % Eos % (Auto) (0.0-4.3) % Baso % (Auto) (0.0-1.8) % Lymph # (Auto) (1.2-5.4) K/mm3 [place] # (Auto) (0.0-0.8) K/mm3 Eos # (Auto) (0.0-0.4) K/mm3 Baso # (Auto) (0.0-0.1) K/mm3 Seg Neutrophils % (40.0-70.0) % Seg Neutrophils # (1.8-7.7) K/mm3 VBG pH 7.345 (7.320-7.420) Sodium (137-145) mmol/L Potassium (3.6-5.0) mmol/L Chloride (98-107) mmol/L Carbon Dioxide (22-30) mmol/L Anion Gap mmol/L BUN (9-20) mg/dL Creatinine (0.8-1.3) mg/dL Estimated GFR ml/min BUN/Creatinine Ratio % Glucose (75-100) mg/dL POC Glucose 524 H (70-105) mg/dL Calcium (8.4-10.2) mg/dL Total Bilirubin (0.1-1.2) mg/dL AST (5-40) units/L ALT (7-56) units/L Alkaline Phosphatase (35-129) units/L Total Protein (6.3-8.2) g/dL Albumin (3.9-5) g/dL Albumin/Globulin Ratio % Urine Color Colorless (Yellow) Urine Turbidity Clear (Clear) Urine pH 6.0 (5.0-7.0) Ur Specific Superior 1.021 (1.003-1.030) Urine Protein <15 mg/dl (Negative) mg/dL Urine Glucose (UA) >=500 (Negative) mg/dL Urine Ketones Neg (Negative) mg/dL Urine Blood Neg (Negative) Urine Nitrite Neg (Negative) Urine Bilirubin Neg (Negative) Urine Urobilinogen < 2.0 (<2.0) mg/dL Ur Leukocyte Esterase Neg (Negative) Urine WBC (Auto) < 1.0 (0.0-6.0) /HPF Urine RBC (Auto) < 1.0 (0.0-6.0) /HPF U Epithel Cells (Auto) < 1.0 (0-13.0) /HPF 07/25/21 Range/Units 18:40 WBC (4.5-11.0) K/mm3 RBC (3.65-5.03) M/mm3 Hgb (11.8-15.2) gm/dl Hct (35.5-45.6) % MCV (84-94) fl MCH (28-32) pg MCHC (32-34) % RDW (13.2-15.2) % Plt Count (140-440) K/mm3 Lymph % (Auto) (13.4-35.0) % [place] % (Auto) (0.0-7.3) % Eos % (Auto) (0.0-4.3) % Baso % (Auto) (0.0-1.8) % Lymph # (Auto) (1.2-5.4) K/mm3 [place] # (Auto) (0.0-0.8) K/mm3 Eos # (Auto) (0.0-0.4) K/mm3 Baso # (Auto) (0.0-0.1) K/mm3 Seg Neutrophils % (40.0-70.0) % Seg Neutrophils # (1.8-7.7) K/mm3 VBG pH (7.320-7.420) Sodium (137-145) mmol/L Potassium (3.6-5.0) mmol/L Chloride (98-107) mmol/L Carbon Dioxide (22-30) mmol/L Anion Gap mmol/L BUN (9-20) mg/dL Creatinine (0.8-1.3) mg/dL Estimated GFR ml/min BUN/Creatinine Ratio % Glucose (75-100) mg/dL POC Glucose 299 H (70-105) mg/dL Calcium (8.4-10.2) mg/dL Total Bilirubin (0.1-1.2) mg/dL AST (5-40) units/L ALT (7-56) units/L Alkaline Phosphatase (35-129) units/L Total Protein (6.3-8.2) g/dL Albumin (3.9-5) g/dL Albumin/Globulin Ratio % Urine Color (Yellow) Urine Turbidity (Clear) Urine pH (5.0-7.0) Ur Specific [place] (1.003-1.030) Urine Protein (Negative) mg/dL Urine Glucose (UA) (Negative) mg/dL Urine Ketones (Negative) mg/dL Urine Blood (Negative) Urine Nitrite (Negative) Urine Bilirubin (Negative) Urine Urobilinogen (<2.0) mg/dL Ur Leukocyte Esterase (Negative) Urine WBC (Auto) (0.0-6.0) /HPF Urine RBC (Auto) (0.0-6.0) /HPF U Epithel Cells (Auto) (0-13.0) /HPF - Medical Decision Making Patient is a 40-year-old male presents emergency room with complaints of hyperglycemia. He states he has not taken his short acting insulin in 2 weeks. He reports that he got a new primary care doctor and they gave him a vial of insulin instead of a insulin pen which he previously had. He states that the insulin vial did not come with any syringes so he reports that he was not able to give himself any insulin. He has associated nausea, vomiting, dry mouth, increased thirst, urinary frequency, lightheadedness. Past medical history of seizures. No allergies to medications. Vitals are normal. Labs with elevated blood glucose at 667. Venous pH is normal, anion gap is stable, no ketones in the urine, do not suspect DKA. Patient given 2 L normal saline and IV insulin and blood glucose improved to 299. Patient given refill of his insulin pen that he was given during his previous admission. Advised patient Please take medication as prescribed. Follow-up with your primary care doctor. Increase your water intake. Eat a low sugar/low carbohydrate diet. Return to emergency room for any new or worsening symptoms. Critical care attestation.: If time is entered above; I have spent that time in minutes in the direct care of this critically ill patient, excluding procedure time. ED Disposition Clinical Impression: Hyperglycemia due to diabetes mellitus Disposition: HOME / SELF CARE / HOMELESS Is pt being admited?: No Does the pt Need Aspirin: No Condition: Stable Instructions: Hyperglycemia, [id number], Diabetes Mellitus Type 2 in Adults (ED) Additional Instructions: Please take medication as prescribed. Follow-up with your primary care doctor. Increase your water intake. Eat a low sugar/low carbohydrate diet. Return to emergency room for any new or worsening symptoms. Prescriptions: Blood Sugar Diagnostic [Blood Glucose Test] 1 each MC QID #2 box Insulin Aspart (Nf) [NovoLOG Flexpen] 8 unit SQ AC #1 insuln.pen Referrals: PRIMARY CARE, [Primary Care Provider] - 2-3 Days Time of Disposition: 19:21 Print Language: TRISTANIAN
[2021-07-25 15:11] LABS: Basophils % (Auto) 0.5 % (0.0-1.8); Eosinophils # (Auto) 0.1 K/mm3 (0.0-0.4); Eosinophils % (Auto) 1.5 % (0.0-4.3); Hematocrit 38.9 % (35.5-45.6); Hemoglobin 12.9 gm/dl (11.8-15.2); Lymphocytes # (Auto) 2.2 K/mm3 (1.2-5.4); Mean Corpuscular HGB Conc 33 % (32-34); Mean Corpuscular Volume 85 fl (84-94); Monocytes # (Auto) 0.4 K/mm3 (0.0-0.8); Monocytes % (Auto) 7.1 % (0.0-7.3); Platelet Count 286 K/mm3 (140-440); Red Blood Count 4.58 M/mm3 (3.65-5.03); Red Cell Distribution Width 12.6 % (13.2-15.2)
[2021-07-25 15:26] LABS: Alanine Aminotransferase 102 units/L (7-56); Albumin 4.3 g/dL (3.9-5); BUN/Creatinine Ratio 17; Blood Urea Nitrogen 25 mg/dL (9-20); Calcium 9.1 mg/dL (8.4-10.2); Hemolysis Index 33
[2021-07-25] MEDS ORDERED: INSULIN REGULAR, HUMAN 100 UNITS/1 ML IV ONE ×2 (15:31→17:06)
[2021-07-25 16:46] LABS: Bilirubin,Urine NEG (Negative); Blood,Urine NEG (Negative); Color,Urine Colorless (Yellow); Protein,Urine <15 mg/dL mg/dL (Negative); Urobilinogen,Urine < 2.0 mg/dL (<2.0)
[2021-07-25 17:05] LABS: RBC,Urine < 1.0 /HPF (0.0-6.0); WBC,Urine < 1.0 /HPF (0.0-6.0)
[2021-07-25 20:50] VITALS: BP 122/76
== END 2021-07-25 20:48 | disposition home or self-care (01) ==
LOC: ED 12:54
DX: E11.65 Type 2 diabetes mellitus with hyperglycemia (principal); F17.200 Nicotine dependence, unspecified, uncomplicated
CPT/HCPCS: 36415; 80053; 81001; 82805; 82962; 85025; 96361; 96374; 96376; 99284; J7030; Q0162; Q9967; J1815

== ENCOUNTER 2021-09-02 17:51 | Emergency (ER) | payer OTHER ==
[2021-09-02] MEDS ORDERED: INSULIN REGULAR, HUMAN 100 UNITS/1 ML IV ONE ×2 (17:55→21:14)
--- NOTE | 2021-09-02 17:59 | Emergency Department Report ---
ED General Adult HPI - General Chief complaint: Medical Clearance Stated complaint: FLU LIKE SYMPTOMS Time Seen by Provider: 09/02/21 17:55 - History of Present Illness Initial comments: Patient presents by ambulance for concern for coronavirus. He just got back from [place] yesterday. He learned that multiple family members there had coronavirus. Patient states that he has had a funny taste in his mouth but has not lost taste or smell. EMS had reported his glucose was elevated. He admits that he had run out of his insulin and has not been taking it. He states that he is not remember exactly when he last took his insulin. He is on regular and long-acting. He states that his sugars will normally run around 200. EMS states that it was just reading high on their meter. Patient has had no vomiting or diarrhea. He states that he is been in the hospital about a month ago for uncontrolled diabetes and feels the same as he did then. He is also concerned about possible coronavirus. He however he has no cough or fever. Has no muscle aches or body aches. He has no shortness of breath. - Related Data Previous Rx's Medication Instructions Recorded Last Taken Type Insulin Lispro [Humalog] 0 unit SUB-Q QACHS #1 vial 05/24/[address] [Mar Nicholson] 500 mg PO BID #60 tablet 02/07/21 Unknown Rx Gabapentin 300 mg PO QHS #30 capsule 02/07/21 Unknown Rx traMADoL [Ultram] 50 mg PO Q6HR PRN #24 tablet 04/15/21 Unknown Rx Blood Sugar Diagnostic [Blood 1 each QID #2 box 07/25/21 Unknown Rx Glucose Test] Insulin Aspart (Nf) [NovoLOG 8 unit SQ AC #1 insuln.pen 09/02/21 Unknown Rx Flexpen] Insulin NPH, Human [NovoLIN N] 25 unit SUB-Q BID #1 vial 09/02/21 Unknown Rx Allergies Allergy/AdvReac Type Severity Reaction Status Date / Time No Known Allergies Allergy Verified 04/14/21 15:48 ED Review of Systems ROS: Stated complaint: FLU LIKE SYMPTOMS Other details as noted in HPI Comment: All other systems reviewed and negative Constitutional: denies: fever Eyes: denies: eye pain ENT: denies: throat pain Respiratory: denies: cough Cardiovascular: denies: chest pain Endocrine: denies: unexplained weight loss Gastrointestinal: denies: abdominal pain Genitourinary: denies: dysuria Musculoskeletal: denies: back pain Skin: denies: rash Psychiatric: denies: auditory hallucinations ED Past Medical Hx - Past Medical History Hx Hypertension: Yes ("taken off meds by MD, no longer have it") Hx Diabetes: Yes Hx Seizures: Yes - Surgical History Additional Surgical History: eye surgery, childhood, ankle surgery - Family History Family history: diabetes, hypertension - Social History Smoking Status: Current Every Day Smoker (We discussed tobacco cessation x3 minutes) - Medications Home Medications: Home Medications Medication Instructions Recorded Confirmed Last Taken Type Insulin Lispro [Humalog] 0 unit SUB-Q QACHS #1 vial 05/24/20 02/05/[address] [Depakote Dr] 500 mg PO BID #60 tablet 02/07/21 Unknown Rx Gabapentin 300 mg PO QHS #30 capsule 02/07/21 Unknown Rx traMADoL [Ultram] 50 mg PO Q6HR PRN #24 tablet 04/15/21 Unknown Rx Blood Sugar Diagnostic [Blood 1 each QID #2 box 07/25/21 Unknown Rx Glucose Test] Insulin Aspart (Nf) [NovoLOG 8 unit SQ AC #1 insuln.pen 09/02/21 Unknown Rx Flexpen] Insulin NPH, Human [NovoLIN N] 25 unit SUB-Q BID #1 vial 09/02/21 Unknown Rx ED Physical Exam - General Limitations: No Limitations, Other (Pulse ox noted normal by EMS) General appearance: alert, in no apparent distress - Head Head exam: Present: atraumatic, normocephalic - Eye Eye exam: Present: normal appearance, EOMI. Absent: scleral icterus - ENT ENT exam: Present: mucous membranes dry, normal external ear exam - Neck Neck exam: Present: normal inspection. Absent: meningismus - Respiratory Respiratory exam: Present: normal lung sounds bilaterally. Absent: respiratory distress - Cardiovascular Cardiovascular Exam: Present: regular rate, normal rhythm - GI/Abdominal GI/Abdominal exam: Present: soft. Absent: tenderness - Extremities Exam Extremities exam: Present: normal capillary refill. Absent: calf tenderness - Back Exam Back exam: Absent: CVA tenderness (R), CVA tenderness (L) - Neurological Exam Neurological exam: Present: alert, oriented X3, CN II-XII intact, normal gait - Psychiatric Psychiatric exam: Present: normal affect, normal mood - Skin Skin exam: Present: warm, dry ED Course Vital Signs 09/03/21 00:25 Temperature 97.8 F Pulse Rate 83 Respiratory 18 Rate Blood Pressure 170/110 [Right] - Reevaluation(s) Reevaluation #2: 09/02/21 17:58 EMS was met upon arrival. IV and labs ordered. Old records reviewed. Reevaluation #3: 09/02/21 19:05 Labs of been reviewed. Patient is hyperglycemic without evidence of DKA. IV fluids have been ordered. He has insulin ordered. We will improve his glucose and then ultimately, the patient should be discharged. ED Medical Decision Making - Lab Data Result diagrams: 09/02/21 18:13 09/02/21 18:13 - Medical Decision Making Patient presents by ambulance for concern of Covid, but has no significant coronavirus symptoms. He still could have coronavirus, but does not require emergent testing. He is not hypoxic. He does have hyperglycemia but is not in DKA. We will treat him symptomatically. We will refill his medication when it is time for discharge. He does not have any obvious metabolic derangement other than hyperglycemia. The sodium does correct appropriately. He has been aggressively hydrated here. Insulin has been used to improve his glucose. Critical Care Time: No Critical care attestation.: If time is entered above; I have spent that time in minutes in the direct care of this critically ill patient, excluding procedure time. ED Disposition Clinical Impression: Exposure to COVID-19 virus Uncontrolled type 1 diabetes mellitus Qualifiers: Glycemic state: with hyperglycemia Qualified Code(s): E10.65 - Type 1 diabetes mellitus with hyperglycemia Disposition: HOME / SELF CARE / HOMELESS Is pt being admited?: No Condition: Stable Instructions: Insulin Treatment for Diabetes Mellitus, How To Perform Urine Ketone Tests at Home, Hyperglycemia, [id number], Type 1 Diabetes Mellitus, Self Care, Adult, Diabetes Mellitus Type 2 in Adults (ED) Additional Instructions: Drink plenty water. Avoid all carbohydrates. Take your insulin as dosed. Return for problems. Follow-up with your primary care doctor for recheck. Prescriptions: Insulin NPH, Human [NovoLIN N] 25 unit SUB-Q BID #1 vial Insulin Aspart (Nf) [NovoLOG Flexpen] 8 unit SQ AC #1 insuln.pen Referrals: PRIMARY CARE, [Primary Care Provider] - 3-5 Days CHANTELL MAR MD [Staff Physician] - 3-5 Days
[2021-09-02 18:26] LABS: Hematocrit 35.8 % (35.5-45.6); Hemoglobin 11.3 gm/dl (11.8-15.2); Mean Corpuscular HGB Conc 32 % (32-34); Mean Corpuscular Volume 85 fl (84-94); Platelet Count 216 K/mm3 (140-440); Red Blood Count 4.23 M/mm3 (3.65-5.03); Red Cell Distribution Width 12.5 % (13.2-15.2)
[2021-09-02 18:40] LABS: BUN/Creatinine Ratio 21; Blood Urea Nitrogen 30 mg/dL (9-20); Calcium 8.5 mg/dL (8.4-10.2); Hemolysis Index 5
[2021-09-02] MEDS ORDERED: SODIUM CHLORIDE 0.9% 1000 ML 1,000 ML IV ONE (19:05)
[2021-09-03 00:27] VITALS: BP 170/110
== END 2021-09-03 | disposition home or self-care (01) ==
LOC: ED 17:51
DX: E10.65 Type 1 diabetes mellitus with hyperglycemia (principal); Z20.822 Contact with and (suspected) exposure to COVID-19; F17.200 Nicotine dependence, unspecified, uncomplicated
CPT/HCPCS: 36415; 80048; 82805; 85027; 96361; 96374; 99284; J7030; Q0162; Q9967; J1815

== ENCOUNTER 2022-04-29 01:29 | Emergency (ER) | payer SELFPAY ==
[2022-04-29] MEDS ORDERED: ONDANSETRON 4 MG/2 ML INJ IV ONE (06:15)
[2022-04-29] MEDS ORDERED: SODIUM CHLORIDE 0.9% 1000 ML 1,000 ML IV ONE ×2 (06:15→09:59)
--- NOTE | 2022-04-29 06:19 | Emergency Department Report ---
HPI - General Chief Complaint: Hyperglycemia Time Seen by Provider: 04/29/22 06:07 - HPI HPI: Room 20 Patient is a 41-year-old male present with a chief complaint of hyperglycemia and depression. The patient states he has been out of his insulin for a pproximately 2 weeks and subsequently been using his sister's Humalog 3-4 times a day. Patient states for the past 2 to 3 days he has had nausea vomiting. Patient mitts to occasional headache but denies history of fever. Patient also notes that he has been depressed for approximately 1 year. Patient stating problems with his children's mother. Patient denies suicidal ideation ED Past Medical Hx - Past Medical History Previous Medical History?: Yes Hx Hypertension: Yes Hx Diabetes: Yes Hx Seizures: Yes Additional medical history: neuropathy - Surgical History Past Surgical History?: Yes Additional Surgical History: eye surgery, childhood, ankle surgery - Family History Family history: no significant - Social History Smoking Status: Current Some Day Smoker (Black and milds) Substance Use Type: Alcohol (Rarely), Marijuana - Medications Home Medications: Home Medications Medication Instructions Recorded Confirmed Last Taken Type Insulin Lispro [Humalog] 0 unit SUB-Q QACHS #1 vial 05/24/20 02/05/[address] [Mar Nicholson] 500 mg PO BID #60 tablet 02/07/21 Unknown Rx Gabapentin 300 mg PO QHS #30 capsule 02/07/21 Unknown Rx traMADoL [Ultram] 50 mg PO Q6HR PRN #24 tablet 04/15/21 Unknown Rx Blood Sugar Diagnostic [Blood 1 each QID #2 box 07/25/21 Unknown Rx Glucose Test] Escitalopram Oxalate [Lexapro] 5 mg PO QDAY #30 04/29/22 Unknown Rx Insulin Aspart (Nf) [NovoLOG 8 unit SQ AC #1 insuln.pen 04/29/22 Unknown Rx Flexpen] Insulin NPH, Human [NovoLIN N] 25 unit SUB-Q BID #1 vial 04/29/22 Unknown Rx ED Review of Systems ROS: Stated complaint: BLOOD SUGAR Other details as noted in HPI Constitutional: denies: fever Eyes: denies: eye pain ENT: denies: throat pain Respiratory: no symptoms reported Cardiovascular: denies: chest pain Endocrine: no symptoms reported Gastrointestinal: nausea Genitourinary: denies: dysuria Musculoskeletal: denies: back pain Neurological: headache Physical Exam - Physical Exam Vital Signs: Vital Signs 04/29/22 04/29/22 01:36 06:12 Temperature 97.8 F Pulse Rate 87 Respiratory 18 20 Rate Blood Pressure 115/91 [Right] O2 Sat by Pulse 98 100 Oximetry Physical Exam: GENERAL: The patient is well-developed well-nourished male lying on stretcher not appearing to be in acute distress. [] HEENT: Normocephalic. Atraumatic. Extraocular motions are intact. Patient has moist mucous membranes. NECK: Supple. Trachea midline CHEST/LUNGS: Clear to auscultation. There is no respiratory distress noted. HEART/CARDIOVASCULAR: Regular. There is no tachycardia. There is no gallop rub or murmur. ABDOMEN: Abdomen is soft, nontender. Patient has normal bowel sounds. There is no abdominal distention. SKIN: There is no rash. There is no edema. There is no diaphoresis. NEURO: The patient is awake, alert, and oriented. The patient is cooperative. The patient has no focal neurologic deficits. The patient has normal speech. GCS 15 MUSCULOSKELETAL: There is no evidence of acute injury. ED Course Vital Signs 04/29/22 04/29/22 01:36 06:12 Temperature 97.8 F Pulse Rate 87 Respiratory 18 20 Rate Blood Pressure 115/91 [Right] O2 Sat by Pulse 98 100 Oximetry ED Medical Decision Making - Lab Data Result diagrams: 04/29/22 06:59 04/29/22 06:59 Laboratory Tests 04/29/22 04/29/22 04/29/22 01:39 05:59 06:08 WBC RBC Hgb Hct MCV MCH MCHC RDW Plt Count Lymph % (Auto) Whitfield % (Auto) Eos % (Auto) Baso % (Auto) Lymph # (Auto) Whitfield # (Auto) Eos # (Auto) Baso # (Auto) Seg Neutrophils % Seg Neutrophils # VBG pH Sodium Potassium Chloride Carbon Dioxide Anion Gap BUN Creatinine Estimated GFR BUN/Creatinine Ratio Glucose POC Glucose 260 H 436 H Calcium Total Bilirubin AST ALT Alkaline Phosphatase Total Protein Albumin Albumin/Globulin Ratio Lipase Urine Color Straw Urine Turbidity Clear Specific [place] (Man) 1.010 Ur Protein (Man) <30 mg dl Ur Ketones (Man) 5 Ur Nitrite (Man) Negative Ur Reducing Substances Not Reportable Urine Bilirubin (Man) Negative Urine Ictotest Not Reportable Leukocyte Esterase (Man) Negative Urine WBC (Auto) < 1.0 Urine RBC (Auto) < 1.0 U Epithel Cells (Auto) < 1.0 Urine RBC (Manual) Negative Valproic Acid 04/29/22 04/29/22 04/29/22 06:59 06:59 06:59 WBC 3.7 L RBC 4.58 Hgb 12.3 Hct 37.7 MCV 82 L MCH 27 L MCHC 33 RDW 13.4 Plt Count 210 Lymph % (Auto) 33.0 Whitfield % (Auto) 5.8 Eos % (Auto) 2.2 Baso % (Auto) 0.5 Lymph # (Auto) 1.2 Whitfield # (Auto) 0.2 Eos # (Auto) 0.1 Baso # (Auto) 0.0 Seg Neutrophils % 58.5 Seg Neutrophils # 2.1 VBG pH Sodium 132 L Potassium 5.5 H Chloride 97.6 L Carbon Dioxide 27 Anion Gap 13 BUN 19 Creatinine 1.4 H Estimated GFR > 60 BUN/Creatinine Ratio 14 Glucose 513 H* POC Glucose Calcium 8.8 Total Bilirubin 0.20 AST 58 H ALT 90 H Alkaline Phosphatase 67 Total Protein 5.8 L Albumin 3.7 L Albumin/Globulin Ratio 1.8 Lipase 60 Urine Color Urine Turbidity Specific [place] (Man) Ur Protein (Man) Ur Ketones (Man) Ur Nitrite (Man) Ur Reducing Substances Urine Bilirubin (Man) Urine Ictotest Leukocyte Esterase (Man) Urine WBC (Auto) Urine RBC (Auto) U Epithel Cells (Auto) Urine RBC (Manual) Valproic Acid < 2.8 L 04/29/22 04/29/22 04/29/22 06:59 07:47 09:55 WBC RBC Hgb Hct MCV MCH MCHC RDW Plt Count Lymph % (Auto) Whitfield % (Auto) Eos % (Auto) Baso % (Auto) Lymph # (Auto) Whitfield # (Auto) Eos # (Auto) Baso # (Auto) Seg Neutrophils % Seg Neutrophils # VBG pH 7.323 Sodium Potassium Chloride Carbon Dioxide Anion Gap BUN Creatinine Estimated GFR BUN/Creatinine Ratio Glucose POC Glucose 489 H 350 H Calcium Total Bilirubin AST ALT Alkaline Phosphatase Total Protein Albumin Albumin/Globulin Ratio Lipase Urine Color Urine Turbidity Specific [place] (Man) Ur Protein (Man) Ur Ketones (Man) Ur Nitrite (Man) Ur Reducing Substances Urine Bilirubin (Man) Urine Ictotest Leukocyte Esterase (Man) Urine WBC (Auto) Urine RBC (Auto) U Epithel Cells (Auto) Urine RBC (Manual) Valproic Acid - Medical Decision Making Psych note reviewed and appreciated. - Differential Diagnosis Hyperglycemia, depression, adjustment disorder, DKA Critical care attestation.: If time is entered above; I have spent that time in minutes in the direct care of this critically ill patient, excluding procedure time. ED Disposition Clinical Impression: Hyperglycemia, Depression, Hyperkalemia Disposition: HOME / SELF CARE / HOMELESS Is pt being admited?: No Does the pt Need Aspirin: No Condition: Stable Instructions: Hyperglycemia, [id number], Living With Depression Additional Instructions: Professional and Agency Contacts To help [facility] (26/03) [place] Crisis Line: Suicide Prevention Line: Crisis Text Line: [place] to 107927 Emergency: 911 Outpatient COMMUNITY Behavioral Health Resources: [place]: [facility] [address] [place], [place] [address] [facility] [address] [place] [address] Sunday thru Sunday - 8am - 5pm Call to schedule an assessment for mental health and substance abuse programs [facility] Address: [address] [place] [address] Sunday thru Sunday- 7am-2pm [facility] Address: [address] [place] [address] Sunday thru Sunday: 8:30AM-5PM Prescriptions: Escitalopram Oxalate [Lexapro] 5 mg PO QDAY #30 Insulin NPH, Human [NovoLIN N] 25 unit SUB-Q BID #1 vial Insulin Aspart (Nf) [NovoLOG Flexpen] 8 unit SQ AC #1 insuln.pen Referrals: IRMA TREJO MD [Primary Care Provider] - 3-5 Days Time of Disposition: 11:50
[2022-04-29 07:20] LABS: WBC,Urine < 1.0 /HPF (0.0-6.0)
[2022-04-29 07:38] LABS: Basophils % (Auto) 0.5 % (0.0-1.8); Eosinophils # (Auto) 0.1 K/mm3 (0.0-0.4); Eosinophils % (Auto) 2.2 % (0.0-4.3); Hematocrit 37.7 % (35.5-45.6); Hemoglobin 12.3 gm/dl (11.8-15.2); Lymphocytes # (Auto) 1.2 K/mm3 (1.2-5.4); Mean Corpuscular HGB Conc 33 % (32-34); Mean Corpuscular Volume 82 fl (84-94); Monocytes # (Auto) 0.2 K/mm3 (0.0-0.8); Monocytes % (Auto) 5.8 % (0.0-7.3); Platelet Count 210 K/mm3 (140-440); Red Blood Count 4.58 M/mm3 (3.65-5.03); Red Cell Distribution Width 13.4 % (13.2-15.2)
[2022-04-29] MEDS ORDERED: INSULIN REGULAR, HUMAN 100 UNITS/1 ML IV ONE ×2 (07:48→09:58)
[2022-04-29 07:54] LABS: Color,Urine Straw (Yellow); RBC,Urine < 1.0 /HPF (0.0-6.0)
[2022-04-29 08:00] LABS: Alanine Aminotransferase 90 units/L (7-56); Albumin 3.7 g/dL (3.9-5); BUN/Creatinine Ratio 14; Blood Urea Nitrogen 19 mg/dL (9-20); Calcium 8.8 mg/dL (8.4-10.2); Hemolysis Index 3
--- NOTE | 2022-04-29 10:43 | Consultation ---
History of Present Illness - Reason for Consult Consult date: 04/29/22 Reason for consult: depression - History of Present Psychiatric Illness The patient was seen today. He has a history of seizure disorder and DM. He is calm, and cooperative. He is a/o x 3. The patient says he was brought to the hospital because he's been without his insulin for about a month. He says he's also been dealing with depression because he's been away from his kids. The patient says they are in [place]. He says he doesn't get along with their mother. The patient says he lives alone and gets lonely sometimes. He says he has friends at work but when he gets home it's nothing to do. He denies any psych history in recent years. He says he seen a psychiatrist when he was about 15 years old for depression. He says "I was in foster care then." He denies being on any psych meds. The patient denies SI/HI or hallucinations. He says he sleeps okay and his appetite is okay. I discussed with the patient the benefit of therapy, and an antidepressant. He is interested in both. I discussed with the patient possible side effects of the medication. PAST PSYCHIATRIC HISTORY Diagnoses: Denies Suicide attempts or Self-harm behavior: Denies Prior psychiatric hospitalizations: Denies Substance Abuse history:Denies Previous psychiatric medications tried:Denies Outpatient treatment: Denies PAST MEDICAL HISTORY: None reported Family Psychiatric History: None reported or documented SOCIAL HISTORY Marital Status: Single Living Arrangements: Lives alone Employment Status: Employed Access to guns/weapons: Denies Education: History of Abuse: Denies Legal History: None reported REVIEW OF SYSTEMS Constitutional: Negative for weight loss ENT: Negative for stridor Respiratory: Negative for cough or hemoptysis All other systems reviewed and are negative MENTAL STATUS EXAMINATION General Appearance and Behavior: Age appropriate, good hygiene, calm, cooperative Cooperation: cooperative Psychomotor Behavior: Psychomotor normal, Mood: Depressed Affect and affective range: congruent with stated mood Thought Process: goal directed Thought Content: None Speech: normal rate and volume Suicidal Ideation: Denies Homicidal Ideation: Denies Hallucinations: Denies Delusions: None elicited Impulse Control: Normal Insight and Judgment: Limited Memory: Limited Attention: Attentive Orientation: Aox3 Assessment and Plan (1) Major depressive disorder Treatment Plan Lexapro 5mg po daily Risks, benefits and alternatives of medications discussed with the patient, questions answered and consent obtained from patient. PSYCHOTHERAPY: Supportive psychotherapy provided MEDICAL: Per primary team DELIRIUM PRECAUTIONS: Please re-orient patient frequently, keep lights on during the day, and minimize benzodiazepines and opiates as these medications could worsen patient's confusion. ARC AND GAS WELDER: Defer to primary DISPOSITION: Do not recommend acute inpatient psychiatric hospitalization at th is time. The application trainer to give the patient all necessary outpatient resources FOLLOW-UP: sign off Thank you for the consult. Please contact with any questions and/or concerns Case discussed with Dr. Bojorquez who agrees with current disposition Medications and Allergies Allergies Allergy/AdvReac Type Severity Reaction Status Date / Time No Known Allergies Allergy Verified 04/14/21 15:48 Home Medications Medication Instructions Recorded Confirmed Last Taken Type Insulin Lispro [Humalog] 0 unit SUB-Q QACHS #1 vial 05/24/20 02/05/[address] [Depakote Dr] 500 mg PO BID #60 tablet 02/07/21 Unknown Rx Gabapentin 300 mg PO QHS #30 capsule 02/07/21 Unknown Rx traMADoL [Ultram] 50 mg PO Q6HR PRN #24 tablet 04/15/21 Unknown Rx Blood Sugar Diagnostic [Blood 1 each QID #2 box 07/25/21 Unknown Rx Glucose Test] Insulin Aspart (Nf) [NovoLOG 8 unit SQ AC #1 insuln.pen 09/02/21 Unknown Rx Flexpen] Insulin NPH, Human [NovoLIN N] 25 unit SUB-Q BID #1 vial 09/02/21 Unknown Rx Escitalopram Oxalate [Lexapro] 5 mg PO QDAY #30 04/29/22 Unknown Rx Active Meds: Active Medications Sodium Chloride (Nacl 0.9% 1000 Ml) 1,000 mls @ 999 mls/hr IV ONCE ONE Stop: 04/29/22 10:59 Last Admin: 04/29/22 10:10 Dose: 999 mls/hr Mental Status Exam - Vital signs Last Vital Signs Temp 97.8 F 04/29/22 01:36 Pulse 87 04/29/22 01:36 Resp 20 04/29/22 06:12 BP 115/91 04/29/22 01:36 Pulse Ox 100 04/29/22 06:12 Results Result Diagrams: 04/29/22 06:59 04/29/22 06:59 Abnormal lab results 04/29/22 04/29/22 04/29/22 Range/Units 01:39 05:59 06:59 WBC 3.7 L (4.5-11.0) K/mm3 MCV 82 L (84-94) fl MCH 27 L (28-32) pg Sodium (137-145) mmol/L Potassium (3.6-5.0) mmol/L Chloride (98-107) mmol/L Creatinine (0.8-1.3) mg/dL Glucose (75-100) mg/dL POC Glucose 260 H 436 H (70-105) mg/dL AST (5-40) units/L ALT (7-56) units/L Total Protein (6.3-8.2) g/dL Albumin (3.9-5) g/dL Valproic Acid (50-100) ug/mL 04/29/22 04/29/22 04/29/22 Range/Units 06:59 06:59 07:47 WBC (4.5-11.0) K/mm3 MCV (84-94) fl MCH (28-32) pg Sodium 132 L (137-145) mmol/L Potassium 5.5 H (3.6-5.0) mmol/L Chloride 97.6 L (98-107) mmol/L Creatinine 1.4 H (0.8-1.3) mg/dL Glucose 513 H* (75-100) mg/dL POC Glucose 489 H (70-105) mg/dL AST 58 H (5-40) units/L ALT 90 H (7-56) units/L Total Protein 5.8 L (6.3-8.2) g/dL Albumin 3.7 L (3.9-5) g/dL Valproic Acid < 2.8 L (50-100) ug/mL 04/29/22 Range/Units 09:55 WBC (4.5-11.0) K/mm3 MCV (84-94) fl MCH (28-32) pg Sodium (137-145) mmol/L Potassium (3.6-5.0) mmol/L Chloride (98-107) mmol/L Creatinine (0.8-1.3) mg/dL Glucose (75-100) mg/dL POC Glucose 350 H (70-105) mg/dL AST (5-40) units/L ALT (7-56) units/L Total Protein (6.3-8.2) g/dL Albumin (3.9-5) g/dL Valproic Acid (50-100) ug/mL All other labs normal.
[2022-04-29] MEDS ORDERED: SODIUM POLYSTYRENE 15 GM/60 ML ORAL LIQD PO ONE (11:47)
[2022-04-29 12:31] VITALS: BP 118/89
== END 2022-04-29 12:31 | disposition home or self-care (01) ==
LOC: ED 01:29
DX: E11.65 Type 2 diabetes mellitus with hyperglycemia (principal); F32.9 Major depressive disorder, single episode, unspecified; E87.5 Hyperkalemia; I10 Essential (primary) hypertension; F12.90 Cannabis use, unspecified, uncomplicated; F17.200 Nicotine dependence, unspecified, uncomplicated; Z72.89 Other problems related to lifestyle; Z79.899 Other long term (current) drug therapy
CPT/HCPCS: 36415; 80053; 80164; 81001; 82805; 82962; 83690; 85025; 96361; 96374; 96375; 96376; 99284; J2405; J7030; Q9967; J1815